=== PATIENT | female | born 1990 | race African-American/Black ===

== ENCOUNTER 2016-08-25 10:57 | Emergency (ER) | payer OTHER ==
[~2016-08-25] VITALS: Ht 167.6 cm; Wt 100.0 kg
[~2016-08-25 10:57] MED LIST: DICL50TA3 PO; HYDR-3533 PO
[2016-08-25 10:59] VITALS: BP 146/76; PULSE 73; RESP 14; TEMP 98.1; O2SAT 100
[2016-08-25] MEDS ORDERED: CLIN1CAP5 PO (12:05)
[2016-08-25] MEDS ORDERED: IBUP800T23 PO (12:05)
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
== END 2016-08-25 12:22 | disposition home or self-care (01) ==
LOC: NEPB 10:57
DX: H65.92 Unspecified nonsuppurative otitis media, left ear (principal); K08.89 Other specified disorders of teeth and supporting structures
CPT/HCPCS: 99283

== ENCOUNTER 2016-10-26 18:58 | Emergency (ER) | payer OTHER ==
[~2016-10-26] VITALS: Ht 167.6 cm; Wt 101.8 kg
[~2016-10-26 18:58] MED LIST changes: +CLIN1CAP5 PO; -DICL50TA3 PO; -HYDR-3533 PO; +IBUP800T23 PO
[2016-10-26 19:02] VITALS: BP 156/87; PULSE 87; RESP 16; TEMP 97.8; O2SAT 98
[2016-10-27] MEDS ORDERED: CITA20TA4 PO (00:56)
[2016-10-27] MEDS ORDERED: AMLO10 PO (00:56)
[2016-10-27] MEDS ORDERED: ZOFR4TAB3 SL (03:12)
[2016-10-27] MEDS ORDERED: MOTR200T4 PO (03:12)
[2016-10-27] MEDS ORDERED: LORA-361 PO (03:12)
== END 2016-10-26 22:04 | disposition left against medical advice (07) ==
LOC: NED 18:58
DX: R51 Headache (principal); R11.2 Nausea with vomiting, unspecified; R19.7 Diarrhea, unspecified; Z53.21 Procedure and treatment not carried out due to patient leaving prior to being seen by health care provider
CPT/HCPCS: 99281

== ENCOUNTER 2016-10-27 00:17 | Emergency (ER) | payer OTHER ==
[~2016-10-27] VITALS: Ht 167.6 cm; Wt 100.0 kg
[2016-10-27 00:21] VITALS: BP 125/69; PULSE 85; RESP 18; TEMP 97.3; O2SAT 99
[2016-10-27] MEDS ORDERED: CITA20TA4 PO (00:56)
[2016-10-27] MEDS ORDERED: AMLO10 PO (00:56)
[2016-10-27 00:58] VITALS: BP 127/78; PULSE 71; RESP 18; O2SAT 99
[2016-10-27] MEDS ORDERED: SODIUM CHLORIDE 0.9% FLUSH 5 ML FLUSH IVF PRN (01:15)
[2016-10-27] MEDS ORDERED: SODIUM CHLOR 0.9% 1000 ML INJ 1,000 ML IV ONE (01:15)
[2016-10-27] MEDS ORDERED: METOCLOPRAMIDE HCL 10 MG/2 ML VIAL IVP ONE (01:15)
[2016-10-27] MEDS ORDERED: diphenhydrAMINE HCL 50 MG/ML VIAL IVP ONE (01:15)
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
[2016-10-27 01:51] LABS: AUTOMATED NEUTROPHIL # 2.3 TH/MM3 (1.8-7.7); BASOPHIL # 0.1 TH/MM3 (0-0.2); EOSINOPHIL # 0.2 TH/MM3 (0-0.4); EOSINOPHIL % 3.6 % (0.0-4.0); HEMATOCRIT 31.4 % (35.0-46.0); HEMO FLAGS DIFF FINAL; LYMPH % 47.2 % (9.0-44.0); LYMPHOCYTE # 2.6 TH/MM3 (1.0-4.8); MEAN CELL VOLUME 87.8 FL (80.0-100.0); MEAN CORPUSCULAR HEMOGLOBIN 28.9 PG (27.0-34.0); MEAN CORPUSCULAR HGB CONC 32.9 % (32.0-36.0); MONO % 6.8 % (0.0-8.0); NEUT % 41.4 % (16.0-70.0); PLATELET COUNT 409 TH/MM3 (150-450); RED BLOOD COUNT 3.58 MIL/MM3 (4.00-5.30); RED CELL DISTRIBUTION WIDTH 14.1 % (11.6-17.2); WHITE BLOOD COUNT 5.4 TH/MM3 (4.0-11.0)
[2016-10-27] MEDS ORDERED: IBUPROFEN 600 MG TAB PO ONE (02:15)
[2016-10-27 02:26] LABS: BICARBONATE 28.9 MEQ/L (21.0-32.0); POTASSIUM 3.5 MEQ/L (3.5-5.1)
[2016-10-27 02:59] LABS: BLOOD, URINE NEG (NEG); GLUCOSE,URINE NEG (NEG); HYALINE CAST, URINE 1 /lpf (RARE); KETONE, URINE NEG (NEG); MUCUS URINE FEW /lpf (OCC); NITRITE,URINE NEG (NEG); SQUAMOUS EPITHELIAL CELL URINE 5 /hpf (0-5); URINE COLOR YELLOW (YELLW/STRAW)
[2016-10-27 03:02] LABS: COMMENT (UR) CULT NOT INDICATED; CULTURE IF INDICATED CULT NOT INDICATED
[2016-10-27] MEDS ORDERED: MOTR200T4 PO (03:12)
[2016-10-27] MEDS ORDERED: LORA-361 PO (03:12)
[2016-10-27] MEDS ORDERED: ZOFR4TAB3 SL (03:12)
== END 2016-10-27 03:30 | disposition home or self-care (01) ==
LOC: NEPC 00:17
DX: J01.00 Acute maxillary sinusitis, unspecified (principal); R11.2 Nausea with vomiting, unspecified; K08.89 Other specified disorders of teeth and supporting structures; I10 Essential (primary) hypertension
CPT/HCPCS: 80048; 81001; 84703; 85025; 87804; 96361; 96374; 96375; 99284; J1200; J2765; J7030

== ENCOUNTER 2016-12-07 19:05 | Emergency (ER) | payer OTHER ==
[~2016-12-07] VITALS: Ht 167.6 cm; Wt 102.3 kg
[~2016-12-07 19:05] MED LIST changes: +AMLO10 PO; +CITA20TA4 PO; -CLIN1CAP5 PO; -IBUP800T23 PO; +LORA-361 PO; +MOTR200T4 PO; +ZOFR4TAB3 SL
[2016-12-07 19:07] VITALS: BP 138/81; PULSE 93; RESP 16; TEMP 98.6; O2SAT 98
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
[2016-12-07] MEDS ORDERED: AMBI5TAB PO (20:24)
[2016-12-07] MEDS ORDERED: XANA2TAB2 PO (20:24)
[2016-12-07] MEDS ORDERED: DIAZ5TAB PO (20:24)
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
== END 2016-12-07 20:42 | disposition home or self-care (01) ==
LOC: NEPK 19:05
DX: S10.91XA Abrasion of unspecified part of neck, initial encounter (principal); F41.8 Other specified anxiety disorders; I10 Essential (primary) hypertension; Y09 Assault by unspecified means; Z76.0 Encounter for issue of repeat prescription
CPT/HCPCS: 99282